=== PATIENT | female | born 1990 | race Caucasian/White ===

== ENCOUNTER 2022-02-14 09:00 | Outpatient (CLI) | payer BC, OTHER ==
[2022-02-14 20:28] LABS: SARS-CoV-2 PCR by NAA Not Detected (NotDetected)
== END 2022-02-14 09:01 | disposition home or self-care (01) ==
LOC: CSHLAB 09:00
PROVIDERS: ATTEND Advanced Practice Midwife
DX: Z20.822 Contact with and (suspected) exposure to COVID-19 (principal)
CPT/HCPCS: U0003; U0005

== ENCOUNTER 2022-02-15 17:34 | Inpatient (IN) | payer BC ==
[~2022-02-15 17:34] MED LIST: Bupivacaine 0.25% HCL 30 ML VIAL ONE; Bupivacaine/Epinephrine 0.25% 30 ML VIAL ONE
[2022-02-15 20:17] LABS: Hemoglobin 10.1 g/dL (12.0-15.5); Mean Corpuscular HGB CONC 32.9 g/dL (32.0-36.0); Mean Corpuscular Hemoglobin 27.7 pg (27.0-33.0); Mean Corpuscular Volume 84.3 fl (81.6-98.3); Mean Platelet Volume 12.9 fl (7.4-10.4); Platelet Count 202 10x3/uL (150-450); RBC Distribution Width 13.1 % (11.5-14.5); Red Blood Cell (RBC) Count 3.64 10x6/uL (3.90-5.03)
[2022-02-15 20:48] LABS: HBSAg Index 0.18 S/CO (0-0.99); Hep B Surf Ag Non-Reactive S/CO (NonReactive); Syphilis Antibody Nonreactive (Nonreactive); Syphilis Antibody Index 0.03 S/CO (<1.00 Non-Reactive)
[2022-02-16 03:35] VITALS: BMI 30.8
[2022-02-16] MEDS ORDERED: NS w/ Oxytocin 30 units 500 ML IVPB SCH ×2 (05:30→05:45)
[2022-02-16] MEDS ORDERED: Lidocaine 1% (PF) 30 ML VIAL SC PRN (05:30)
[2022-02-16] MEDS ORDERED: NS w/ Oxytocin 30 units 500 ML IV SCH (05:30)
[2022-02-16] MEDS ORDERED: Ibuprofen 800 MG TAB PO PRN (05:30)
[2022-02-16] MEDS ORDERED: Diphenoxylate HCl/Atropine Tablet PO PRN ×2 (05:30)
[2022-02-16] MEDS ORDERED: Methylergonovine 0.2 MG/ML VIAL IM PRN (05:30)
[2022-02-16] MEDS ORDERED: Misoprostol 200 MCG TAB RC PRN (05:30)
[2022-02-16] MEDS ORDERED: HYDROcodone/Acetaminophen 5/325 mg Tablet PO PRN ×2 (05:30)
[2022-02-16] MEDS ORDERED: Carboprost 250 MCG/ML AMP IM PRN (05:30)
[2022-02-16] MEDS ORDERED: Promethazine HCl 25 MG/ML VIAL IM PRN ×2 (05:45→09:59)
[2022-02-16] MEDS ORDERED: Butorphanol Tartrate 1 MG/ML VIAL SLOW IVP PRN (05:45)
[2022-02-16] MEDS ORDERED: Lactated Ringer's 1,000 ML IV SCH (05:45)
[2022-02-16] MEDS ORDERED: hydrALAZINE 20 MG/ML VIAL SLOW IVP PRN (05:45)
[2022-02-16] MEDS: Ondansetron PF 4 MG/2 ML Vial IVP PRN ×2 (05:52→18:27)
[2022-02-16] MEDS ORDERED: Fentanyl 2 mcg/Bup 0.1% Cadd 100 ML ONE ×2 (09:13→16:53)
[2022-02-16] MEDS ORDERED: diphenhydrAMINE 50 MG/ML VIAL IVP PRN (09:59)
[2022-02-16] MEDS ORDERED: ePHEDrine Sulfate 50 MG/10 ML VIAL SLOW IVP PRN (09:59)
[2022-02-16] MEDS ORDERED: Ondansetron PF 4 MG/2 ML Vial IVP PRN (09:59)
[2022-02-16] MEDS ORDERED: Moisturizing Cream (Eucerin) 113 GM JAR TOP PRN (09:59)
[2022-02-16] MEDS ORDERED: Naloxone HCl 0.4 mg/ml Vial IVP PRN ×2 (09:59)
[2022-02-16] MEDS ORDERED: Lactated Ringer's 500 ML IV PRN (09:59)
[2022-02-16] MEDS ORDERED: Acetaminophen 325 MG TAB PO PRN (09:59)
[2022-02-16] MEDS ORDERED: Communication Order-Pharmacy FS SCH (10:00)
[2022-02-16] MEDS ORDERED: Fentanyl 2 mcg/Bupivacaine 0.1% Cassette 100 ML EPIDURAL SCH (10:00)
[2022-02-16] MEDS: Lactated Ringer's 1,000 ML IV SCH ×3 (11:42→22:54)
[2022-02-16] MEDS ORDERED: Fentanyl 100 MCG/2 ML VIAL ONE (18:04)
[2022-02-17] MEDS: Lactated Ringer's 1,000 ML IV SCH (05:30)
[2022-02-17] MEDS ORDERED: Boostrix 0.5 ML (Tdap) VIAL IM ONE (09:56)
[2022-02-17] MEDS ORDERED: hydrALAZINE 20 MG/ML VIAL SLOW IVP PRN (09:56)
[2022-02-17] MEDS ORDERED: Lanolin Ointment 7 GM TUBE TOP PRN (09:56)
[2022-02-17] MEDS ORDERED: Misoprostol 200 MCG TAB VAG PRN (09:56)
[2022-02-17] MEDS ORDERED: NS w/ Oxytocin 30 units 500 ML IV SCH (09:56)
[2022-02-17] MEDS ORDERED: Ondansetron PF 4 MG/2 ML Vial IVP PRN (09:56)
[2022-02-17] MEDS ORDERED: Methylergonovine 0.2 MG/ML VIAL IM PRN (09:56)
[2022-02-17] MEDS ORDERED: HYDROcodone/Acetaminophen 5/325 mg Tablet PO PRN ×2 (09:56)
[2022-02-17] MEDS ORDERED: Benzocaine-Menthol 82.5 ML CAN TOP PRN (09:56)
[2022-02-17] MEDS ORDERED: Milk Of Magnesia 30 ML UDCUP PO PRN (09:56)
[2022-02-17] MEDS ORDERED: Bisacodyl 10 MG SUPP PR PRN (09:56)
[2022-02-17] MEDS ORDERED: Acetaminophen 500 MG TAB PO PRN (11:28)
[2022-02-17] MEDS: Ibuprofen 800 MG TAB PO SCH ×2 (13:14→21:15)
[2022-02-17] MEDS: Ferrous Sulfate 325 MG TAB PO SCH (16:16)
[2022-02-17] MEDS: Docusate 100 MG CAP PO SCH (21:15)
[2022-02-18] MEDS: Ibuprofen 800 MG TAB PO SCH ×2 (05:15→14:26)
[2022-02-18] MEDS: Ferrous Sulfate 325 MG TAB PO SCH (07:56)
[2022-02-18 07:59] VITALS: BP 128/74; TEMP 98.7
[2022-02-18] MEDS: Docusate 100 MG CAP PO SCH (08:46)
[2022-02-18] MEDS ORDERED: Prenatal Vitamin 1 TAB PO SCH (09:00)
== END 2022-02-18 15:55 | disposition home or self-care (01) | DRG 806 ==
LOC: CSHLD 17:34 → CSHPP 02-17 00:05
PROVIDERS: ADMIT Obstetrics & Gynecology; ATTEND Obstetrics & Gynecology
PROC: 10E0XZZ Delivery of Products of Conception, External Approach (ICD-10-PCS; principal; 2022-02-16)
PROC: 0HQ9XZZ Repair Perineum Skin, External Approach (ICD-10-PCS; 2022-02-16)
PROC: 0U7C7ZZ Dilation of Cervix, Via Natural or Artificial Opening (ICD-10-PCS; 2022-02-16)
DX: O99.12 Other diseases of the blood and blood-forming organs and certain disorders involving the immune mechanism complicating childbirth (principal); D68.61 Antiphospholipid syndrome; Z37.0 Single live birth; O70.0 First degree perineal laceration during delivery; Z3A.39 39 weeks gestation of pregnancy; Z88.0 Allergy status to penicillin; Z88.1 Allergy status to other antibiotic agents
CPT/HCPCS: 51702; 85027; 86780; 86850; 86900; 86901; 87340; J0595; J2405; J2590; J7120; S0020